=== PATIENT | male | born 1960 | race African-American/Black ===

== ENCOUNTER → 2016-12-09 | Day surgery (SDC) | payer OTHER ==
[2016-12-08 11:44] VITALS: BMI 33.0
[~2016-12-09] MED LIST: BUPIVACAINE 0.25% 30 ML VIAL INF ONE; DEXAMETHASONE 4 MG/ML VIAL IV PRN; DEXAMETHASONE 4 MG/ML VIAL ONE; DIAZEPAM 5 MG TAB PO PRN; FENTANYL 100 MCG/2 ML VIAL IV PRN; FENTANYL 100 MCG/2 ML VIAL ONE; GLYCOPYRROLATE 1 MG VIAL ONE; HYDROCODONE 5 MG/ACETAMIN 325 MG TAB PO PRN; KETOROLAC TROMETH 30 MG/ML VIAL IV PRN; KETOROLAC TROMETH 30 MG/ML VIAL ONE; LABETALOL 20 MG/4 ML SYRINGE IV PRN; LR 1,000 ML IV ONE; LR 1,000 ML IV SCH; MIDAZOLAM 2 MG/2 ML VIAL ONE; NEOSTIGMINE ONE; NS 1,000 ML IV SCH; NS 250 ML IV SCH; ONDANSETRON HCL 4 MG/2 ML VIAL IV PRN; ONDANSETRON HCL 4 MG/2 ML VIAL ONE; PROPOFOL 200 MG/20 ML VIAL IV ONE; ROCURONIUM 50 MG/5 ML VIAL IV ONE; SCOPOLAMINE TRANSDERMAL PATCH TOP PRN; hydrALAZINE 20 MG/ML VIAL IV PRN
--- NOTE | 2016-12-09 06:58 | SC.ANESEVA ---
Anesthesia Eval & Plan ([facility]) - Providers Surgeon:: Ken Carmen - Medications/Allergies Home Medications: Home Medication List Ammonium Lactate 225 gm TP DAILY PRN 12/08/16 [History] Atorvastatin Calcium [Lipitor] 80 mg PO DAILY 12/08/16 [History] Bupropion HCl [Wellbutrin Xl] 300 mg PO DAILY 12/08/16 [History] Carvedilol [Coreg] 25 mg PO BID 12/08/16 [History] Cholecalciferol (Vitamin D3) [Vitamin D3] 1,000 unit PO DAILY 12/08/16 [History] Docusate Sodium 100 mg PO PRN 12/08/16 [History] Furosemide 40 mg PO DAILY 12/08/16 [History] Gabapentin [Neurontin] 300 mg PO TID 12/08/16 [History] Lisinopril 40 mg PO DAILY 12/08/16 [History] Metformin HCl 500 mg PO BID 12/08/16 [History] Mineral Oil/Hydrophil Petrolat [Petrolatum Base Ointment] PRN 12/08/16 [History ] Nifedipine [Nifedipine ER] 90 mg PO DAILY 12/08/16 [History] Omeprazole [Prilosec] 20 mg PO DAILY 12/08/16 [History] Sildenafil Citrate [Viagra] 100 mg PO DAILY 12/08/16 [History] Sodium Fluoride 0.5 mg PO 12/08/16 [History] Zolpidem Tartrate [Ambien] 10 mg PO HS 12/08/16 [History] Current Medication List: Reviewed - Focused Physical Exam NPO since: Since after Midnight Mallampati: Class II Thyromental Distance: Greater than 3 Neck: Limited Range of Motion Dental: Normal - no significant findings Cardiovascular/Chest: Normal (RRR no mumurs or rubs.) Respiratory: Lungs clear. negative: Wheezing Any problems with anesthesia, including nausea and vomiting?: No Any relatives with a history of Malignant Hyperthermia?: No Prone to Motion Sickness: No Other: Diagnoses UNIL INGUINAL HERNIA, W OBST, W/O GANGR, NOT SPCF RECUR (12/09/16) Home Medications Medication Instructions Recorded Last Taken Type Ammonium Lactate 225 gm TP DAILY PRN 12/08/16 Unknown History Atorvastatin Calcium [Lipitor] 80 mg PO DAILY 12/08/16 Unknown History Bupropion HCl [Wellbutrin Xl] 300 mg PO DAILY 12/08/16 Unknown History Carvedilol [Coreg] 25 mg PO BID 12/08/16 Unknown History Cholecalciferol (Vitamin D3) 1,000 unit PO DAILY 12/08/16 Unknown History [Vitamin D3] Docusate Sodium 100 mg PO PRN 12/08/16 Unknown History Furosemide 40 mg PO DAILY 12/08/16 Unknown History Gabapentin [Neurontin] 300 mg PO TID 12/08/16 Unknown History Lisinopril 40 mg PO DAILY 12/08/16 Unknown History Metformin HCl 500 mg PO BID 12/08/16 Unknown History Mineral Oil/Hydrophil Petrolat PRN 12/08/16 Unknown History [Petrolatum Base Ointment] Nifedipine [Nifedipine ER] 90 mg PO DAILY 12/08/16 Unknown History Omeprazole [Prilosec] 20 mg PO DAILY 12/08/16 Unknown History Sildenafil Citrate [Viagra] 100 mg PO DAILY 12/08/16 Unknown History Sodium Fluoride 0.5 mg PO 12/08/16 Unknown History Zolpidem Tartrate [Ambien] 10 mg PO HS 12/08/16 Unknown History Height and Weight Patient's height 6 ft 1 in Patient's weight 113.398 kg Weight (Calculated Kilograms) 113.398 BMI 33.0 - Anesthetic Plan Anesthesia Type: General ASA Class: 2 - Focused Review of Systems Cardiac History: Yes: Hx Hypertension Respiratory: Yes: Hx Sleep Apnea Gastrointestinal: Yes: Hx Colonoscopy (2014) Endocrine: Yes: Hx Non-Insulin Dependent Diabetes Blood/Autoimmune: Yes: Hx Hepatitis (type) Surgical History: Yes: Cholecystectomy, Back (ACDF), Knee (LEFT TKR)
--- NOTE | 2016-12-09 12:50 | PCM.DCS92 ---
Discharge Outpatient Note Additional Instructions: INSTRUCTIONS: 12/09/16 Resume home medications Diet : High Fiber Stool softener daily. Take laxative if needed Okay to ambulate Ice pack to groin for 15-20 minutes 4-6 times per day Okay to shower tomorrow No straining No Lifting anything 30lbs or greater No driving x4 days (and only if not taking pain medications) Call office for a follow up appointment [phone]
--- NOTE | 2016-12-09 12:54 | HIMOPRPT ---
PROCEDURE: DATE OF PROCEDURE: 12/09/16 PREOPERATIVE DIAGNOSIS: Right inguinal hernia. POSTOPERATIVE DIAGNOSIS: Right inguinal hernia and umbilical hernia PROCEDURE: Laparoscopic repair of Right inguinal hernia using Bard 3D mesh. and umbilical hernia SURGEON: Ken Carmen MD ANESTHESIA: General. COMPLICATIONS: None. ESTIMATED BLOOD LOSS: less than 5cc OPERATIVE NOTE: The patient was placed supine on the operating table. After induction of anesthesia, he was prepped and draped in the usual fashion. A small supraumbilical incision was made and an umbilical hernia was identified. We removed the sac and freed up the edges using the electrocautery. A 5-mm Optiview trocar was placed at this site. With this in place, we insufflated the abdomen with CO2 until a pressure of 15 was achieved. The abdomen was inspected. We then placed a 5-mm port in the right side of the abdomen and an 11 -mm port on the right. On inspection of the abdomen a RIH was noted. No hernia present on the left side. We went ahead and opened the peritoneum on the right side. Once we did this, we were able to bluntly dissect the peritoneum and create a preperitoneal space. The hernia sac was pulled away from the defect and the surrounding cord structures. Once proper amount of space was created, we went ahead and placed a right-sided 3D mesh. We covered the defect and the surrounding tissues. We then used a SecureStrap to secure this to the pubic tubercle, and the abdominal wall muscles. Once this was secured, we went ahead and closed the peritoneum. We noted there were no wrinkles or folds on the mesh and we pulled the peritoneum over the mesh and approximated this to the upper edge of the peritoneum using the SecureStrap Tacker as well. The mesh remained nicely in place. This area was completely hemostatic. We went ahead and used a 0 Vicryl suture and closed the larger port site after we had removed the port. The umbilical hernia was also repaired using 0 Vicryl sutures. These were placed in a horizontal mattress fashion. We removed the remaining 5 mm port allowing the CO2 to escape. The wounds were irrigated and then infiltrated with 0.25% Marcaine. We went ahead and closed the skin edges using 4-0 Monocryl and Dermabond. Sponge, needle, and instrument counts were correct.
[2016-12-09 13:01] VITALS: TEMP 97.2
[2016-12-09 14:34] VITALS: BP 143/79; PULSE 50
--- NOTE | 2016-12-12 10:06 | SC.ANESPOS ---
Post-Anesthesia Note LOC: Fully Awake Post-Anesthesia Assessment: Awake, Returned to Baseline, Hemodynamically Stable , Pain Control Adequate Phase I & II Recovery Complete: Yes Apparent Anesthesia Complication: No : N - Vital Signs Blood Pressure: 143/79 Pulse: 50 Resp Rate: 18 O2 Sat: 99 Temp: 97.2 F
== END ==
LOC: CPSC 08:40
PROVIDERS: ATTEND Surgery
PROC: 0WQF4ZZ Repair Abdominal Wall, Percutaneous Endoscopic Approach (ICD-10-PCS; 2016-12-09)
PROC: 0YU54JZ Supplement Right Inguinal Region with Synthetic Substitute, Percutaneous Endoscopic Approach (ICD-10-PCS; principal; 2016-12-09 09:45)
DX: K40.30 Unilateral inguinal hernia, with obstruction, without gangrene, not specified as recurrent (principal); K42.9 Umbilical hernia without obstruction or gangrene; I10 Essential (primary) hypertension; E11.9 Type 2 diabetes mellitus without complications; G47.30 Sleep apnea, unspecified; M19.90 Unspecified osteoarthritis, unspecified site; F32.9 Major depressive disorder, single episode, unspecified; Z79.899 Other long term (current) drug therapy; Z79.84 Long term (current) use of oral hypoglycemic drugs; Z90.49 Acquired absence of other specified parts of digestive tract; Z86.19 Personal history of other infectious and parasitic diseases
CPT/HCPCS: 49650; 49652; 82962; C1781; J1100; J1885; J2250; J2405; J2704; J2710; J3010; J3490